=== PATIENT | male | born 1950 | race African-American/Black ===

== ENCOUNTER 2016-09-16 02:48 | Inpatient (IN) | payer OTHER ==
[~2016-09-16] VITALS: Ht 175.3 cm; Wt 72.6 kg
[2016-09-16] MEDS ORDERED: AMOXICILLIN500 M2 PO (09:10)
[2016-09-16] MEDS ORDERED: NORCO 5-325 TA1 EACH PO (09:11)
--- NOTE | 2016-09-16 11:28 | Admission Core Measures ---
Admission Meds I reviewed the following Meds: Current Medications Sig/Terry Start time Last Medication Dose Stop Time Status Admin Acetaminophen 975 MG ONCE 09/16 0000 NR (Tylenol) 09/16 2358 Cefazolin Sodium 2,000 MG ONCE 09/16 NR (Kefzol-Ancef Inj) 09/16 2358 Oxycodone HCl 10 MG ONCE 09/16 0000 NR (Roxicodone) 09/16 2358 Acute Coronary Syndrome Inclusion Criteria ACS Diagnosis No Inpatient Core Measures LDL Reminder: If No, please order W/I first 24hr of stay Congestive Heart Failure Inclusion Criteria CHF Diagnosis No Cerebrovascular accident Inclusion Criteria CVA/TIA Diagnosis No Inpatient Core Measures Bedside Swallow Eval Reminder: If BSE failed, place ST order Antithrombotic Reminder: Order Antithrombotic Medication by end of day 2 Antithrombotic Reminder: Document Reason Antithrombotic Not ordered by end of day 2 AFIB/Flutter Reminder: If Present, add to problem list AFIB/Flutter Reminder: Order Anticoag Medication for pts with AFIB/Flutter Atherosclerosis Reminder: If Present, add to problem list LDL Reminder: If No, please order W/I first 24hr of stay PT Order Reminder: If No, please order Venous thromboembolism Inpatient Core Measures VTE Risk Factors: Age > 40, [facility] prophylaxis d/t No contraindications No VTE Pharm Prophylaxis d/t No contraindications Inclusion Criteria - Per Current guidelines, there needs to be overlap - treatment for the first 5 days of Warfarin therapy. - Parenteral Anticoagulation (IV or SC) needs to be - given along with Warfarin therapy. VTE Diagnosis No VTE Type NONE VTE Confirmed by (Test) NONE Problem List As ranked by this Provider includes Assessment & Plan 1. Unilateral primary osteoarthritis, right hip HOME MEDS Home Med List Amoxicillin 500 MG CAPSULE 1 CAP PO TID INFECTION (Reported) Hydrocodone/Acetaminophen (Carson 5-325 Tablet) 5 MG-325 MG TABLET 1 TAB PO BIDP PRN PAIN (Reported)
[2016-09-16] MEDS ORDERED: ASPIRIN EC325 M2 PO (11:31)
[2016-09-16] MEDS ORDERED: DILAUDID2 M1 PO (11:31)
[2016-09-16] MEDS ORDERED: COLACE100 M1 PO (11:31)
[2016-09-16] MEDS ORDERED: PRILOSEC OTC20 M1 PO (11:31)
[2016-09-16] MEDS ORDERED: MIRALAX17 G1 PO (11:31)
[2016-09-16] MEDS ORDERED: MS CONTIN15 M2 PO (11:31)
--- NOTE | 2016-09-16 11:34 | Patient Discharge Instructions ---
Discharge Instructions General Discharge Information You were seen/treated for: RIGHT HIP PAIN You had these procedures: RIGHT TOTAL HIP REPLACEMENT Watch for these problems: INCREASING PAIN DESPITE THE USE OF PAIN MEDICATION, REDNESS, WARMTH, SWELLING. DRAINAGE OF ANY TYPE FROM INCISION. INABILITY TO BEAR WEIGHT ON RIGHT LEG. FEVER GREATER THAN 101.5. Do not soak the wound: Yes No bath, but you may shower: Yes Other wound care: KEEP WOUND CLEAN AND DRY Special Instructions: WOUND CARE: YOUR DRESSING WILL BE CHANGED ON THE SECOND DAY AFTER SURGERY. IF YOU ARE HOME, IT WILL BE DONE BY VISITING NURSE. AFTER THAT POINT, KEEP WOUND CLEAN AND DRY. YOU MAY SHOWER. DO NOT SCRUB THE INCISION. PAT IT DRY WITH A CLEAN TOWEL AFTER YOUR SHOWER. DO NOT PUT ANY OINTMENTS OF ANY KIND ON INCISION. BOWEL REGIMEN: IT IS IMPORTANT TO MAKE SURE YOU TAKE YOUR COLACE AND MIRALAX TO AVOID CONSTIPATION WHICH COMMONLY OCCURS WITH THE USE OF PAIN MEDICATION. BLOOD THINNER: YOU HAVE BEEN GIVEN A PRESCRIPTION FOR ASPIRIN 325 MG. PLEASE TAKE THIS TWICE DAILY STARTING DAY OF SURGERY TO ENSURE PROTECTION FROM THE DEVELOPMENT OF A BLOOD CLOT. YOU WILL BE TAKING THIS FOR 4 WEEKS. FOLLOW UP: DR. BARRETT WILL SEE YOU IN HIS OFFICE IN 6 WEEKS FROM DATE OF SURGERY. Diet Continue normal diet: Yes Recommended Diet: Regular Additional DIET Information: ADVANCE TOLERATED Activity Full Activity/No Limits: No Activity Self Limited: Yes Pounds, do NOT lift more than: 10 Acute Coronary Syndrome Inclusion Criteria At DC or during hospital stay patient has or had the following: ACS DIAGNOSIS No Discharge Core Measures Meds if any: Prescribed or Continued at Discharge Meds if any: NOT Prescribed or Continued at Discharge Congestive Heart Failure Inclusion Criteria At DC or during hospital stay patient has or had the following: CHF DIAGNOSIS No Discharge Core Measures Meds if any: Prescribed or Continued at Discharge Meds if any: NOT Prescribed or Continued at Discharge Cerebrovascular accident Inclusion Criteria At DC or during hospital stay patient has or had the following: CVA/TIA Diagnosis No Discharge Core Measures Meds if any: Prescribed or Continued at Discharge Meds if any: NOT Prescribed or Continued at Discharge Venous thromboembolism Inclusion Criteria VTE Diagnosis No VTE Type NONE VTE Confirmed by (Test) NONE Discharge Core Measures - Per Current guidelines, there needs to be overlap - treatment for the first 5 days of Warfarin therapy. - If discharged on Warfarin prior to 5 days of - overlap therapy, the patient will need to be - assessed for post discharge needs including - *Post discharge parental anticoagulation - *Warfarin and/or parental anticoagulation education - *Follow up date to check INR post discharge At least 5 days overlap therapy as Inpatient No Meds if any: Prescribed or Continued at Discharge Note: Overlap Therapy is Warfarin and Anticoagulant Meds if any: NOT Prescribed or Continued at Discharge
--- NOTE | 2016-09-16 11:45 | Surgical Discharge Summary ---
Visit Information Visit Dates Admission Date: 09/16/16 Discharge Date: 09/18/16 History of Present Illness Chief Complaint: RIGHT HIP PAIN Surgical History Pertinent Surgical History: non-contributory Review of Systems: SEE H&P Hospital Course Course Attending Physician: AKILAH BARRETT MD Primary Care Physician: ROSELINE NGUYEN,[facility] Course: PATIENT WAS ADMITTED TO THE HOSPITAL ON 09/16/2016 FOR AN ELECTIVE RIGHT TOTAL HIP REPLACEMENT. HE TOLERATED THE PROCEDURE WELL. HE WAS TRANSFERRED TO A GENERAL SURGICAL FLOOR. HIS DIET WAS ADVANCED AND TOLERATED. HE VOIDED SPONTANEOUSLY. HIS PAIN WAS WELL CONTROLLED WITH ORAL PAIN MEDICATION. HE WAS EVALUATED AND TREATED BY PHYSICAL THERAPY. HE WAS DEEMED APPROPRIATE FOR DISCHARGE. Allergies: Coded Allergies: bee pollen (BEE STINGS ?? 09/16/16) Disposition Summary Disposition Principal Diagnosis: RIGHT HIP UNILATERAL PRIMARY OSTEOARTHRITIS Additional Diagnosis: NONE Discharge Disposition: home health services Discharge Instructions General Discharge Information Code Status: Full Code Patient's Diet: REGULAR, ADVANCE TOLERATED Patient's Activity: WEIGHT BEAR TOLERATED ON RIGHT LEG Follow-Up Instructions/Appts: WOUND CARE: YOUR DRESSING WILL BE CHANGED ON THE SECOND DAY AFTER SURGERY. IF YOU ARE HOME, IT WILL BE DONE BY VISITING NURSE. AFTER THAT POINT, KEEP WOUND CLEAN AND DRY. YOU MAY SHOWER. DO NOT SCRUB THE INCISION. PAT IT DRY WITH A CLEAN TOWEL AFTER YOUR SHOWER. DO NOT PUT ANY OINTMENTS OF ANY KIND ON INCISION. BOWEL REGIMEN: IT IS IMPORTANT TO MAKE SURE YOU TAKE YOUR COLACE AND MIRALAX TO AVOID CONSTIPATION WHICH COMMONLY OCCURS WITH THE USE OF PAIN MEDICATION. BLOOD THINNER: YOU HAVE BEEN GIVEN A PRESCRIPTION FOR ASPIRIN 325 MG. PLEASE TAKE THIS TWICE DAILY STARTING DAY OF SURGERY TO ENSURE PROTECTION FROM THE DEVELOPMENT OF A BLOOD CLOT. YOU WILL BE TAKING THIS FOR 4 WEEKS. FOLLOW UP: DR. BARRETT WILL SEE YOU IN HIS OFFICE IN 6 WEEKS FROM DATE OF SURGERY. Medications at Discharge Discharge Medications: Stop taking the following medications: Amoxicillin (Amoxicillin) 500 MG CAPSULE ORAL THREE TIMES DAILY Hydrocodone/Acetaminophen (Sunbright 5-325 Tablet) 5 MG-325 MG TABLET ORAL 2 x Daily as needed as needed for PAIN Start taking the following new medications: Aspirin (Ecotrin*) 325 MG TABLET. 1 Tablet ORAL TWICE DAILY Qty = 60 No Refills Docusate Sodium (Colace) 100 MG CAPSULE 1 Capsule ORAL TWICE DAILY Qty = 14 No Refills Instructions: DISCONTINUE USE IF YOU DEVELOP LOOSE STOOL OR DIARRHEA Hydromorphone HCl (Dilaudid) 2 MG TABLET 1-2 Tablet ORAL EVERY 4-6 HOURS as needed for PAIN Qty = 36 No Refills Polyethylene Glycol 3350 (Miralax) 17 GRAM POWD.PACK 1 Packet ORAL DAILY Qty = 7 No Refills Instructions: dissolve in water, DISCONTINUE USE IF YOU DEVELOP LOOSE STOOL OR DIARRHEA Omeprazole Magnesium (Prilosec Otc) 20 MG TABLET.DR 1 Tablet ORAL DAILY Qty = 30 No Refills Morphine Sulfate (Ms Contin) 15 MG TABLET.ER 1 Tablet ORAL TWICE DAILY Qty = 6 No Refills Copies To: ROSELINE NGUYEN,KEELY
--- NOTE | 2016-09-16 13:42 | Operative Report ---
Operative/Inv Procedure Report Surgery Date: 09/16/16 Name of Procedure: Right total hip replacement Pre-Operative Diagnosis: Primary right hip DJD Post-Operative Diagnosis: Same Estimated Blood Loss: 300 Surgeon/Bond Clerk: NENA NGUYEN,AKILAH Guerrier Anesthesia: block Operative/Procedure Note Note: Description of Procedure: The patient was taken to the operating room and positively identified. After induction of spinal anesthesia and administration of appropriate pre-operative antibiotics, the patient was positioned supine on the operating room table and all bony prominences were well padded. After performing a surgical timeout, the right lower extremity was prepped and draped in the usual sterile fashion. A direct anterior approach was made to the right hip. The incision was carried sharply through superficial soft tissues to the level of the fascia. Meticulous hemostasis was maintained with Bovie electocautery. The fascia over the tensor fascia erica muscle was opened sharply and the interval between the TFL and the sartorius was entered bluntly taking care to stay lateral to the lateral femoral cutaneous nerve. Retractors were placed around the femoral neck and the pericapsular fat was identified. The ascending branches of the lateral femoral circumflex vessels were identified and carefully coagulated. The pericapsular fat and anterior capsule were then resected. A napkin ring osteotomy was performed and the femoral head was removed without difficulty. Attention was then turned to the acetabulum. After appropriate placement of retractors, the acetabulum was exposed. Soft tissue was cleaned from the acetabular margin and notch. Overhanging osteophytes were removed and the teardrop was exposed. The acetabulum was then sequentially reamed to accept a 62 mm Lauren Tritanium hemispherical solid back shell. This was impacted into place in the appropriate position and fitted with a 36 mm Trident X3 zero degree eccentric polyethylene insert. Attention was then turned to the femur. After performing the appropriate ligament releases, the proximal femur was exposed. It was then sequentially broached to accept a size 5 Lauren accolade 2 stem. This was trialed for leg length and stability. The trial component was removed and the final component was impacted into place. The trunnion was carefully cleaned and fit with a 36 mm, +5 Biolox delta ceramic femoral head. The hip was reduced and put through a full range of motion and found to be stable. The articular space was then irrigated with sterile saline. The periarticular soft tissues were infilitrated with Marcaine. The fascial layer was closed with interrupted #1 vicryl suture and the skin was re-approximated with interrupted 2 -0 vicryl. The skin was closed with a running 3-0 V-Lock suture. Steri-strips and a sterile dressing were applied. The patient was awakened and taken to the recovery room in satisfactory condition.
--- NOTE | 2016-09-16 15:41 | RADIOLOGY REPORT ---
EXAMINATION: XR HIP, RIGHT CLINICAL INFORMATION: Patient reports status post right total hip replacement. COMPARISON: None TECHNIQUE: AP and crosstable lateral views of the right hip. FINDINGS: The right total hip arthroplasty appears well seated in near-anatomic alignment. There is air in the lateral soft tissues. IMPRESSION: Intact right total hip arthroplasty. Expected postoperative changes.
[2016-09-16 16:00] VITALS: BP 118/70
--- NOTE | 2016-09-16 16:49 | PN- Orthopedic ---
Subjective Subjective: Postop check POD #0 s/p R THR. Pt tolerated the procedure well and was transferred to [facility] in stable condition. He has no major complaints except for some minor corina- umbilical discomfort. He tolerated a small amount of clears. No nausea or vomiting. surgical pain is otherwise controlled. Still awaiting void. Otherwise denies headache, dizziness, chest pain, shortness of breath. Objective Vital Signs and I&Os Vital signs are stable. Patient's afebrile. Physical Exam: Gen.: Patient is awake and alert. No acute distress. Cardiac: Regular Pulmonary: Lungs are clear bilaterally. Abdomen: Soft and nondistended. There is a small reducible umbilical hernia. no focal tenderness is appreciated. Extremities: The right hip dressing is clean, dry, and intact. There is mild periincisional swelling, within expected limits. Thigh is soft. no evidence of hematoma. Lower extremity sensation is intact. Strength of dorsiflexion and plantarflexion 4-5. No calf tenderness noted bilaterally. Assessment/Plan Assessment/Plan Patient is a 66-year-old male who is now postoperative day #0 status post right anterior total hip replacement. Plan: -PT consult for mobilization. WBAT with rolling walker. -Pain control with morphine for now. Po dilaudid when tolerating po. -Advance diet as tolerated. Heplock IV when tolerating adequate po. -Zofran for nausea as needed. -Colace and miralax for bowel regimen. -ASA 325 bid for DVT ppx. Alps and Cam's as well. -Ancef x 2 doses for prophylaxis. Pt was on amoxicillin prior to admission for tooth issue. This can be discontinued. -Await void. -Monitor abdominal exams/symptoms. Suspect abdominal discomfort could be due to surgical retraction...? -Plan for discharge most likely 2-3 days. Core Measures/Miscellaneous Venous Thromboembolism VTE Risk Factors: Age > 40, Surgery VTE Contraindications: No Contraindications VTE Diagnosis: No VTE Type: NONE VTE Confirmed by (Test): NONE Beta Eugene Is Beta Eugene a Home Med? No Antibiotics Is Patient on Antibiotics? Yes If Yes: prophylaxis
--- NOTE | 2016-09-16 19:04 | NUR ---
PT ARRIVED TO FLOOR AT [facility]. 1640. A&O X 3. C/O ABD PRESSURE, PA ARANZA AWARE. C/O INC PRESSURE AND PAIN AND MEDS PROVIDED PER EMAR WITH GOOD EFFECT. BULKY DSG TO RT HIP CD&I. MAINTAIN SAFETY PRECAUTIONS, MONITOR.
[2016-09-16 19:38] VITALS: BP 145/80
[2016-09-16 20:21] VITALS: BP 142/80
[2016-09-16 22:14] VITALS: BP 120/78
[2016-09-17 02:00] VITALS: BP 110/70
--- NOTE | 2016-09-17 02:38 | NUR ---
0130 PT C/O FEELING DISTENDED, UNABLE TO VOID ON OWN. BLADDER SCAN SHOWING >999. PER ORDER MENDOZA TO BE PLACED AT THIS TIME. MULTIPLE ATTEMPTS MADE BY THIS RN WELL 2 OTHER RN WITHOUT SUCCESS. SURGICAL PA CONTACTED AND ORDER RECEIVED TO PLACE COUDE CATH. AGAIN PLACEMENT NOT SUCCESSFUL BY MULTIPLE RN. ATTEMPTED TO STRAIGHT CATHETER ALSO UNSUCCESSFUL. SURGICAL PA CONTACTED AGAIN AT THIS TIME, NO NEW ORDERS RECEIVED. NURSING HUMAN RESOURCES FILE CLERK CONTACTED, 14FR MENDOZA TO BE OBTAINED AND REATTEMPTED. WILL MONITOR.
--- NOTE | 2016-09-17 03:13 | NUR ---
STILL UNABLE TO PLACE MENDOZA OR STRAIGHT CATH PATIENT. SURGICAL PA CONTACTED AND STATES WILL CONTACT UROLOGY AT THIS TIME. PT MEDICATED FOR PAIN. WILL MONITOR.
--- NOTE | 2016-09-17 04:39 | Event Note ---
Event Note Event Note: Post op urinary retention Pt was unable to void post op. Straight cath around 9 pm - 900cc without difficulty. Unable to void again at 1 am - unable to pass numerous catheters by nursing including coude and silicone catheters as well as the straight cath again. I attempted a 10 Fr which did not advance and then a 14 Fr which was able to pass. Immediate relief per patient. Dr Dejesus consulted - has not called back at this time. Will start pt on flomax. Will make Dr Carlos aware in am.
[2016-09-17 06:00] VITALS: BP 106/72
--- NOTE | 2016-09-17 07:16 | PN- Orthopedic ---
See Addendum Subjective Subjective: The patient was seen this morning postoperatively day #1. He reports that his pain was under adequate control and has no complaints at the current time. Objective Vital Signs and I&Os Vital Signs Date Time Temp Pulse Resp B/P Pulse O2 O2 Flow FiO2 Ox Delivery Rate 09/17 06 99.4 72 17 106/72 94 Room Air / 0200 98.3 72 16 110/70 100 Room Air 09/16 2214 98.3 80 20 120/78 96 09/16 2021 98.2 96 20 142/80 96 / 1938 98.2 58 20 145/80 98 / 1600 97.5 57 18 118/70 94 Intake & Output 09/17 0809/17 0000 / 1600 09/16 0809/16 0000 09/15 1600 Intake Total 825 Output Total 1000 770 Balance -1000 55 Intake, IV 525 Intake, Oral 300 Output, Urine 1000 770 Patient 160 lb Weight Physical Exam: Gen.: Alert and in no obvious distress Skin: Warm and dry Extremities: Bilateral lower extremities are warm without calf tenderness or significant edema. Gross motor and sensory are intact. Right hip surgical dressing is clean, dry, and intact. Assessment/Plan Assessment/Plan Assessment: 66-year-old male status post right total hip arthroplasty postoperative day #1. The patient is progressing as expected and his pain is under adequate control. He required a replacement of a Sharp catheter last night due to urinary retention postoperatively. Plan: Out of bed with physical therapy patient is weightbearing as tolerated Hep-Lock IV fluids Follow-up morning laboratory studies Remove Sharp catheter and continue Flomax Attempt to contact Dr. Dejesus this morning for further urology management GI and DVT prophylaxis Continue current pain regiment Aspirin twice a day First surgical dressing change tomorrow Core Measures/Miscellaneous Venous Thromboembolism VTE Risk Factors: Age > 40, Surgery VTE Contraindications: No Contraindications VTE Diagnosis: No VTE Type: NONE VTE Confirmed by (Test): NONE Beta Eugene Is Beta Eugene a Home Med? No Antibiotics Is Patient on Antibiotics? No
[2016-09-17 08:14] LABS: ABSOLUTE BASOPHIL COUNT 0 /CUMM (0.0-0.2); ABSOLUTE EOSINOPHIL COUNT 0 /CUMM (0.0-0.7); ABSOLUTE GRANULOCYTE CT 10.9 /CUMM (1.4-6.5); ABSOLUTE LYMPH COUNT 0.8 /CUMM (1.2-3.4); ABSOLUTE MONOCYTE COUNT 1.6 /CUMM (0.10-0.60); BASOPHIL % 0 % (0.0-2.0); EOSINOPHIL % 0.1 % (0-5); GRANULOCYTE % 81.6 % (42.2-75.2); HEMATOCRIT 33.2 % (42-52); MEAN CORPUSCULAR HGB 30.5 PG (27.0-31.0); MEAN CORPUSCULAR HGB CONC 32.7 G/DL (33.0-37.0); MEAN CORPUSCULAR VOLUME 93.3 FL (80.0-94.0); MEAN PLATELET VOLUME 9.9 FL (7.4-10.4); PLATELET COUNT 164 /CUMM (130-400); RBC DISTRIBUTION WIDTH 14.1 % (11.5-14.5); RED BLOOD CELL CT 3.57 /CUMM (4.70-6.10); WHITE BLOOD CELL COUNT 13.4 /CUMM (4.8-10.8)
[2016-09-17 10:21] VITALS: BP 108/60
--- NOTE | 2016-09-17 13:35 | NUR ---
PHYSICAL THERAPY- ATTEMPTED TO SEE PT THIS PM; PT VERY KINDLY REFUSED TX (OOB OR BEDLEVEL THEREX). PT WAS INITIALLY SLEEPING WHEN P.T. ENTERED ROOM AND ONCE AWAKE, REQUESTING PAIN MEDICATION FOR REPORTED PAIN LEVEL OF 10/10. OFFERED TO REPOSITION FOR COMFORT, WHICH PT DECLINED. PT REPORTS HE WILL AMBULATE W/ NSG STAFF LATER IN DAY. NOTIFIED NSG RE: ABOVE, RN IN TO CHECK ON PT AND MEDICATE. WILL FOLLOW ABLE.
[2016-09-17 14:10] VITALS: BP 102/56
[2016-09-17 21:59] VITALS: BP 92/60
--- NOTE | 2016-09-18 02:58 | NUR ---
09/18/16 AT 0100 PATIENT TEMPORATURE WAS 99.1, PATIENT C/O CHILLS BUT DENIES BODYACHE OR HEADACHE. TYLENOL 650MG PO WAS ADMINISTERED. SURGICAL PA WAS MADE AWARE. 09/18/16 AT 0200 PATIENT WAS RE-ASSESSED. TEMPORATURE WAS 98. NO C/O ANY DISCOMFORT. NO DISTRESS NOTED. PATIENT RESTING COMFORTABLY IN BED. WILL CONTINUE TO MONITOR.
[2016-09-18 06:24] VITALS: BP 100/70
--- NOTE | 2016-09-18 06:53 | PN- Orthopedic ---
Subjective Subjective: pod#2 s/p right radha no major complaints at this time denies cp, sob, no n+v with diet ambulating with pt with no major issues Objective Vital Signs and I&Os Vital Signs Date Time Temp Pulse Resp B/P Pulse O2 O2 Flow FiO2 Ox Delivery Rate 04/ 0624 98.2 67 20 100/70 94 Room Air 04/ 0206 98.0 04/ 0200 98.0 04/ 0108 99.1 04/ 0100 99.1 / 2247 99.9 / 2247 99.9 / 2159 100.5 80 18 92/60 93 04/ 2104 100.5 04/ 1410 99.4 74 18 102/56 94 Room Air / 1021 98.8 70 18 108/60 96 Room Air / 0944 72 106/72 Intake & Output 04/ 0800 04/05 0000 04/04 1600 04/ 0800 04/ 0000 04/03 1600 Intake Total 600 805 600 825 Output Total 600 1350 1000 770 Balance 0 -545 -400 55 Intake, IV 85 600 525 Intake, Oral 600 720 300 Number 0 Bowel Movements Output, Urine 600 1350 1000 770 Patient 160 lb Weight Physical Exam: cv: rrr lungs: clear abd: soft, +bs ext: drsg changed, wound c/d/i moderate size hematoma no calf tenderness distal cms intact Assessment/Plan Assessment/Plan ortho stable plan oob with pt/stairs continue ice to right hip at all times bowel regime wean iv pain meds home d/c planning Core Measures/Miscellaneous Venous Thromboembolism VTE Risk Factors: Age > 40, Surgery VTE Contraindications: No Contraindications VTE Diagnosis: No VTE Type: NONE VTE Confirmed by (Test): NONE Beta Eugene Is Beta Eugene a Home Med? No Antibiotics Is Patient on Antibiotics? No
--- NOTE | 2016-09-18 07:13 | NUR ---
09/18/16 0630 VERBAL ORDER FROM JOVANNY SANCHEZ TO D/Antionette MENDOZA. PATIENT NEEDS TO VOID IN THE NEXT 6 HOURS. INCOMING NURSE AWARE.
--- NOTE | 2016-09-18 11:00 | NUR ---
NURING NOTE: DC ORDER PLACED THIS AM, PATIENT TOLERATED BREAKFAST AND AMBULATED AROUND UNIT. DENIES PAIN/COMPLAINS. PATIENT SEEN BY ; PER PT MORE DISTENDED THAN YESTERDAY. PT MADE NPO, IVF STARTED PER MD ORDERED, STAT LABS ORDERED AND DRAWN BY [facility]ST. AWAITING ABDOMINAL XRAY. PATIENT AND CHARGE NURSE AWARE OF ABOVE. HYPOACTIVE BS X4, NEGATIVE FLATUS, SLIGHTLY DISTENDED AND FIRM. DRESSING TO LOWER R ABDOMEN INTACT. CONT TO MONITOR.
--- NOTE | 2016-09-18 12:15 | NUR ---
NURSING NOTE: PATIENT VOIDING INDEPENDENTLY AND HAS NO COMPLAINS OF INABILITY TO VOID; NO FLOMAX NEEDED AT HOME PER JOVANNY LANE.
== END 2016-09-18 13:33 | disposition home health service (06) | DRG 470 ==
LOC: ENRESERVTM → ENRESERVDT → SDA 02:48 → 2NB 02:48 → ENPENDDIS 02:48 → 2NB 16:14
PROVIDERS: Nurse Practitioner; ADMIT Orthopaedic Surgery
PROC: 0SR90JA Replacement of Right Hip Joint with Synthetic Substitute, Uncemented, Open Approach (ICD-10-PCS; principal; 2016-09-16)
PROC: 0T9B70Z Drainage of Bladder with Drainage Device, Via Natural or Artificial Opening (ICD-10-PCS; 2016-09-17)
DX: M16.11 Unilateral primary osteoarthritis, right hip (principal); F17.200 Nicotine dependence, unspecified, uncomplicated; R33.8 Other retention of urine
CPT/HCPCS: 2NBSP; 36415; 73502-RT; 82436; 88304; 97110-GO; 97116-GO; 97161-GP; 97530-GO; J0690; J0735; J1100; J2405; J2550; J7042